=== PATIENT | male | born 1960 | race Caucasian/White ===

== ENCOUNTER 2022-06-12 15:33 | Emergency (ER) | payer OTHER, SELFPAY ==
[2022-06-12 15:34] VITALS: BP 232/133; PULSE 86; RESP 16; TEMP 36; O2SAT 98; BMI 26.6
--- NOTE | 2022-06-12 15:52 | ED.VIS.DENTA ---
HPI History of Present Illness Chief Complaint: Dental Informant: patient Narrative Narrative: Presents upper cheek swelling over the past week. History of dental decay. He currently does not have a dentist. Has had multiple flares in the past and last time was 6 months ago. He does have healthcare coverage. Also on arrival slightly elevated blood pressure 230s over 123. Not seen a PCP for years ago he was on blood pressure and cholesterol medicines. Discussed lisinopril hydrochlorothiazide he thinks this is it. He denies any allergies. Denies headaches chest pain abdominal pain. Denies nausea or vomiting. He states he does see [facility]. Prior similar symptoms: Yes PFSH PFS Home Medications lisinopril 20 mg-hydrochlorothiazide 25 mg tablet 1 tab PO DAILY #30 tabs 06/12/22 [Rx Last Taken Unknown] penicillin V potassium 250 mg tablet 500 mg PO 4X/DAY #40 tabs 06/12/22 [Rx Last Taken Unknown] Allergy/AdvReac Type Severity Reaction Status Date / Time No Known Allergies Allergy Verified 06/12/22 15:36 ROS ROS ED Constitutional Constitutional ED: Denies chills, fever(s) or sweats Eyes Eyes: Denies change in vision ENT ENT ED: Reports other Details: Dental pain with right maxillary swelling ; Denies dysphagia or sore throat Cardiovascular Cardiovascular: Denies chest pain, leg edema, palpitations or racing heartbeat Respiratory/Chest Respiratory/Chest: Denies cough, dyspnea or dyspnea on exertion Gastrointestinal Gastrointestinal: Denies abdominal pain, diarrhea, nausea or vomiting Genitourinary Genitourinary ED: Denies dysuria, hematuria or urinary frequency Musculoskeletal Musculoskeletal: Denies back pain, extremity pain or neck pain Integumentary Denies rash or wounds Neurologic Neurologic: Denies headache(s), paresthesias or weakness EXAM Physical Exam Const Vital Signs: 06/12/22 15:34 Temperature 96.8 F L Temperature Source Temporal Pulse Rate 86 Respiratory Rate 16 Blood Pressure 232/133 H Blood Pressure Mean 166 Pulse Ox 98 Oxygen Delivery Method Room Air Positive well nourished and well developed General Appearance ED: well developed and NAD HEENT Reports moist mucous membranes HEENT Narrative: Diffuse dental decay down to the gumline, there is no gingival swelling there is no focal abscess. There is some swelling of the right maxillary. Airway patent. No sublingual edema. normocephalic and atraumatic Eyes PERRL, EOMs intact bilaterally and conjunctivae normal General Eye ED: Yes normal appearance of both eyes Neck no lymphadenopathy and supple General: Negative for tenderness Chest Wall Chest: Negative for tenderness Resp normal respiratory effort and normal air movement Effort and Inspection: symmetric chest movement; Negative for respiratory distress Cardio regular rate, regular rhythm and no murmurs Peripheral Pulses: pulses 2+ throughout GI normal to inspection, nondistended, normoactive bowel sounds and non-tender Palpation: Negative for guarding or rebound tenderness present Back/Spine no CVA tenderness and no thoracic nor lumbar tenderness Extremity normal to inspection General Extremety ED: Negative for edema or tenderness General Extremity: Negative for edema Neuro oriented x3 and no sensory deficits noted Sensorium / Orientation: awake and alert Skin no rashes or lesions noted and no wounds MDM MDM MDM Narrative Medical decision making narrative: Recheck blood pressure in the room at 210/126. Patient asymptomatic and has not taken medicines in 4 years. Restarted on his lisinopril and hydrochlorothiazide at 20 and 25 mg. Discussed he would need to follow-up with his [facility] for blood pressure checks and continuous medication adjustments as needed. Month supply was written. I discussed the risks of strokes with blood pressure if persistently elevated, or kidney injury. As for his dental decay is having swelling there is no focal abscessed for I&D. He has had improvement with antibiotics. Penicillin started. He is given dental list for outpatient follow-up for definitive treatment. All questions were answered. Discharge Plan Triage Chief Complaint: Dental ED Provider: Javier Bull Dx/Rx/DC Orders Clinical Impression: Dental caries, Hypertension Instructions: Controlling High Blood Pressure, ED Dental Cavity Prescriptions: New penicillin V potassium 250 mg tablet 500 mg PO 4X/DAY Qty: 40 0RF lisinopril-hydrochlorothiazide 20-25 mg tablet 1 tab PO DAILY Qty: 30 0RF Primary Care Provider: Care Physician,No Primary Referrals: Care Physician,No Primary [Primary Care Provider] - Activity Restrictions/Additional Instructions: Make appointment with the [facility] to follow your blood pressure and continue your medications and adjustments as needed. Follow-up with dental clinic. Disposition Disposition: Home, Self Care
[2022-06-12] MEDS: Lisinopril 20 MG Tablet PO (16:04)
[2022-06-12] MEDS: hydroCHLOROthiazide 25 MG Tablet PO (16:04)
[2022-06-12] MEDS: Penicillin Vk 250 MG Tablet 500 MG PO (16:05)
== END 2022-06-12 16:08 | disposition home or self-care (01) ==
LOC: ED 16:00
PROVIDERS: Emergency Provider Emergency Medicine; Visit Provider Emergency Medicine
DX: K02.9 Dental caries, unspecified (principal); I10 Essential (primary) hypertension; Z79.899 Other long term (current) drug therapy
CPT/HCPCS: 99282

== ENCOUNTER 2022-08-04 15:18 | Emergency (ER) | payer OTHER, SELFPAY ==
[2022-08-04 15:19] VITALS: BP 152/94; PULSE 77; RESP 16; TEMP 36.3; O2SAT 98; BMI 25.7
--- NOTE | 2022-08-04 15:43 | EX.ED.DYSGE1 ---
HPI History of Present Illness Chief Complaint: Dental Onset/Context/Timing Onset: Month(s) (1) Context: Gradual Onset Timing: Continuous Quality: Stabbing, stinging, burning Location: Right upper premolars Worsened by: Nothing Relieved by: Nothing Narrative Narrative: Patient presents with facial swelling and right upper dental pain that has been getting worse over the past month. Patient states she has been on 2 courses of antibiotics for this with no improvement. Patient describes his pain as stabbing, stinging, and burning. Patient states nothing makes it better nothing makes it worse. Patient does admit to some sensitivity to cold. Patient also admits to facial and jaw swelling. Patient denies any difficulty breathing or difficulty swallowing. Patient also admits to some left upper quadrant abdominal pain. Patient admits to nausea and vomiting with this. Patient denies any fevers or chills. Patient denies any diarrhea, melena, or hematochezia. [facility] Medical History Hypertension Home Medications omeprazole 20 mg capsule,delayed release 20 mg PO DAILY ##30 09/21/14 [Rx Last Taken Unknown] hydrochlorothiazide 25 mg tablet 25 mg PO DAILY ##30 04/15/16 [Rx Last Taken Unknown] amoxicillin 875 mg-potassium clavulanate 125 mg tablet 875 mg PO Q12H #20 TABLETS 08/04/22 [Rx Last Taken Unknown] clindamycin HCl 150 mg capsule 150 mg PO TID 08/04/22 [History Last Taken Unknown] Allergy/AdvReac Type Severity Reaction Status Date / Time No Known Allergies Allergy Verified 08/04/22 15:31 Surgical History no surgical history no surgical history Social History Smoking Status: Current every day smoker tobacco type: cigarettes ROS ROS ED Constitutional Constitutional ED: Denies chills or fever(s) Eyes Eyes: Reports change in vision; Denies blurry vision ENT ENT ED: Denies rhinorrhea or sore throat Cardiovascular Cardiovascular: Denies chest pain or palpitations Respiratory/Chest Respiratory/Chest: Reports dyspnea; Denies cough Gastrointestinal Gastrointestinal: Reports abdominal pain, nausea and vomiting Genitourinary Genitourinary ED: Denies dysuria or hematuria Musculoskeletal Musculoskeletal: Denies back pain or neck pain Integumentary Reports abscess; Denies rash Neurologic Neurologic: Denies headache(s) or weakness Allergic/Immunologic Allergic/Immunologic ED: Denies mouth swelling or urticaria EXAM Physical Exam Const Vital Signs: 08/04/22 15:19 Temperature 97.3 F L Temperature Source Temporal Pulse Rate 77 Respiratory Rate 16 Blood Pressure 152/94 H Blood Pressure Mean 113 Pulse Ox 98 Oxygen Delivery Method Room Air Positive well nourished, well developed and unkempt General Appearance ED: unkempt, well developed and NAD HEENT Reports moist mucous membranes HEENT Narrative: There are multiple dental caries noted. There is edema of the right upper premolar area. There is no discharge or drainage. There is no fluctuance. Eyes PERRL and EOMs intact bilaterally Neck no lymphadenopathy, supple and no JVD Chest Wall inspection of chest normal and palpation of chest normal Resp normal respiratory effort and clear to auscultation bilaterally Cardio regular rate and regular rhythm GI normal to inspection, nondistended, normoactive bowel sounds Palpation: soft and tender LUQ; Negative for guarding or rebound tenderness present Neuro oriented x3, CN's II-XII intact bilaterally and no sensory deficits noted Sensorium / Orientation: alert Psych mental status grossly normal Appearance: unkempt MDM MDM MDM Narrative Medical decision making narrative: Patient was given IV fluids and Unasyn here. CBC shows a mild anemia with a hemoglobin of 10.0 and hematocrit 31.6. Comprehensive metabolic profile was essentially within normal limits. Lipase was normal. Patient was advised of his findings. Patient was given a prescription for Augmentin. Patient was instructed to follow-up with his dentist in 5 to 7 days. Patient was instructed to use Tums or Mylanta [id number] as needed for his abdominal pain. Patient was instructed to follow-up with his primary care physician in 5 to 7 days as well. Patient understood and was agreeable with the plan. All questions were answered. Lab Data Attestation: I reviewed the patient's lab results. Labs: Laboratory Results - last 24 hr 08/04/22 08/04/22 16:11 16:11 WBC 10.4 RBC 3.36 L Hgb 10.0 L Hct 31.6 L MCV 94.0 MCH 29.8 MCHC 31.6 L RDW Std Deviation 42.8 RDW Coeff of Terri 12.4 Plt Count 370 MPV 9.4 Immature Gran % (Auto) 0.300 Neut % (Auto) 74.5 H Lymph % (Auto) 13.6 L [place] % (Auto) 7.8 Eos % (Auto) 3.5 Baso % (Auto) 0.3 Absolute Neuts (auto) 7.8 H Absolute Lymphs (auto) 1.42 Nucleated RBC % 0 Sodium 139 Potassium 4.6 Chloride 105 Carbon Dioxide 29.0 Anion Gap 5 BUN 33 H Creatinine 0.98 Estim Creat Clear Calc 81.73 Est GFR (MDRD) Af Amer 100 Est GFR (MDRD) Non-Af 83 BUN/Creatinine Ratio 33.7 H Glucose 104 Calcium 9.6 Total Bilirubin 0.30 AST 9 L ALT 14 L Alkaline Phosphatase 64 Total Protein 6.9 Albumin 2.9 L Globulin 4.0 Albumin/Globulin Ratio 0.7 L Lipase 90 Discharge Plan Triage Chief Complaint: Dental ED Provider: Gerard Rowley Dx/Rx/DC Orders Clinical Impression: Abscess, dental, Left upper quadrant abdominal pain Instructions: ED Dental Abscess, ED Abdominal Pain Unkn Cause Male... Prescriptions: New amoxicillin-pot clavulanate [amoxicillin-pot clavulanate] 875-125 mg tablet 875 mg PO Q12H Qty: 20 0RF No Action omeprazole 20 MG capsule 20 mg PO DAILY Qty: 30 0RF hydrochlorothiazide 25 MG tablet 25 mg PO DAILY Qty: 30 0RF clindamycin HCl 150 mg capsule 150 mg PO TID Label Comments: TAKE 1 CAPSULE BY MOUTH THREE TIMES DAILY UNTIL GONE Primary Care Provider: Care Physician,No Primary Referrals: Ilda Lux [Non-Staff] - 5-7 Days NOT,DEFINED [Non-Staff] - Dentist,Your [STAFF PHYSICIAN] - 5-7 Days Disposition Disposition: Home, Self Care
[2022-08-04 16:15] LABS: Absolute Lymphocyte Count 1.42 X10^3/uL (0.83-4.51); Absolute Neutrophil Count 7.8 X10^3/uL (2.0-7.7); Basophil# 0.03 X10^3/uL; Basophil% 0.3 % (0-1); Eosinophil# 0.37 X10^3/uL; Eosinophils% 3.5 % (0-5); Hematocrit 31.6 % (40-54); Lymphocyte # 1.42 X10^3/ul (0.83-4.51); Lymphocyte % 13.6 % (19-41); Mean Corp Hgb Conc 31.6 g/dL (32-36); Mean Corpuscular Hgb 29.8 pg (27.0-32.0); Mean Platelet Vol. 9.4 fl (6.2-12.0); Monocyte# 0.81 X10^3/uL; Monocyte% 7.8 % (0-10); NRBC Flagged by Analyzer 0 % (0-5); Neutrophil # 7.78 X10^3/uL (2.7-7.7); Neutrophil % 74.5 % (47-70); Platelet Count 370 K/mm3 (150-450); RBC Distribution Width CV 12.4 % (11.6-14.6); RBC Distribution Width SD 42.8 fl (35.1-43.9); Red Blood Count 3.36 M/mm3 (4.6-6.2); White Blood Count 10.4 K/mm3 (4.4-11.0)
[2022-08-04 16:44] LABS: ALB/GLOB Ratio 0.7 RATIO (0.9-2.4); AST(SGOT) 9 U/L (15-37); Alanine Aminotransfer ALT/SGPT 14 U/L (16-61); Albumin, Serum 2.9 g/dL (3.2-5.0); Alkaline Phosphatase 64 U/L (45-117); Anion Gap 5 (5-15); BUN 33 mg/dL (7-18); BUN/Creat Ratio 33.7 RATIO (10-20); Calcium,Total 9.6 mg/dL (8.5-10.1); Chloride 105 mmol/L (98-107); Creatinine, Serum 0.98 mg/dL (0.70-1.30); EST Glomerular Filtration Rate 83 mL/min (>60); Est Glom Filt Rate - Afr Amer 100 mL/min (>60); Estimated Creatinine Clearance 81.73 ml/min; Glucose 104 mg/dL (74-106); Lipase 90 U/L (73-393); Potassium 4.6 mmol/L (3.5-5.1); Protein, Total 6.9 g/dL (6.4-8.2); Sodium Level 139 mmol/L (136-145)
[2022-08-04 17:30] VITALS: BP 163/94; PULSE 66; RESP 18; O2SAT 100
[2022-08-04 17:42] VITALS: BP 167/93; PULSE 57; RESP 18; O2SAT 97
--- NOTE | 2022-08-08 03:01 | HP.PCM.HOS_ITS ---
HPI - General General Date of Admission: 08/08/22 Date of Service: 08/08/22 Chief Complaint: Abdominal pain. HPI Narrative The patient is a 62 y/o M w/ PMHx: HTN, Tobacco use, recent dental infection over the last month with right upper face swelling treated with abx therapy course x2 including most recently 08/04/2022 Augmentin which was of note a 10-day supply and prior to this 07/29/2022 clindamycin also a 10-day course who presents to the [facility] ED on 08/08/22 with history of left-sided abdominal discomfort more so in the left upper quadrant with associated nausea and reports only emesis if he overeats with no specific diarrhea or constipation and reports has been having normal bowel movements with no melena or hematochezia but given the discomfort is been ongoing prompted ED evaluation. Work-up in the ED included T98.5, heart rate 94, BP 147/116, respiratory rate 20, 100% on room air, CBC with WBC 12.1, hemoglobin 10.8, MCV 94.2, platelet 418 with left shift, CMP with BUN/creatinine 36/1.48, glucose 142 otherwise hepatic profile unremarkable, lipase 112, CT abdomen pelvis with findings suggestive of possible sequelae of acute duodenitis and/or duodenal ulceration. In the ED patient ministered Protonix 40 mg IV x1, Zofran 4 mg IV x1, morphine 4 mg IV x2 as well as normal saline bolus. PFSH Medical History Chronic anemia Hypertension Tobacco use Home Medications omeprazole 20 mg capsule,delayed release 20 mg PO DAILY ##30 09/21/14 [Rx Last Taken Unknown] hydrochlorothiazide 25 mg tablet 25 mg PO DAILY ##30 04/15/16 [Rx Last Taken Unknown] amoxicillin 875 mg-potassium clavulanate 125 mg tablet 875 mg PO Q12H #20 TABLETS 08/04/22 [Rx Last Taken Unknown] clindamycin HCl 150 mg capsule 150 mg PO TID 08/04/22 [History Last Taken Unknown] Allergy/AdvReac Type Severity Reaction Status Date / Time No Known Allergies Allergy Verified 08/04/22 15:31 Surgical History no surgical history Social History Smoking Status: Current every day smoker tobacco type: cigarettes Vital Signs Vital Signs Vital Signs: Weight Weight: 179 lb 3.773 oz Body Mass Index (BMI) 25.7 Results Lab / Micro Data Result Diagrams: 08/04/22 16:11 08/04/22 16:11 Assessment & Plan Assessment/Plan PLAN: Plan The patient is a 62 y/o M w/ PMHx: HTN, Tobacco use, recent dental infection over the last month with right upper face swelling treated with abx therapy course x2 including most recently 08/04/2022 Augmentin which was of note a 10-day supply and prior to this 07/29/2022 clindamycin also a 10-day course who presents to the [facility] ED on 08/08/22 with history of left-sided abdominal discomfort more so in the left upper quadrant with associated nausea and reports only emesis if he overeats with no specific diarrhea or constipation and reports has been having normal bowel movements with no melena or hematochezia but given the discomfort is been ongoing prompted ED evaluation. #1. Acute abdominal pain with possibly acute duodenitis and/or duodenal ulceration: CT A/P w/ findings suggestive of possible sequelae of acute duodenitis and/or duodenal ulceration. Will admit to medical surgical floor, maintain on aggressive hydration, monitor I&Os, maintain NPO status w/ bowel rest, treat with zosyn regimen, maintain on IV PPI, anti-emetics, pain regimen PRN. Will request Gastroenterology consultation. #2. Acute Right Sided Dental Infection: 08/04/2022 Augmentin rx with 10-day supply and prior to this 07/29/2022 clindamycin also a 10-day course, transitione d as noted currently to zosyn given acute presentation #1. #3. Macrocytic anemia, unclear if acute or chronic: Admission hemoglobin 10.8, MCV 94.2, iron panel, ferritin, vitamin B12, folic acid level and pending guaiac per ED. #4. Acute Renal Insufficiency: Admission BUN/creatinine 36/1.48, last noted 08/04/22 BUN/Cr 33/0.98, will continue judicious hydration, temporarily hold patient lisinopril-hydrochlorothiazide combination and repeat level in AM. #5. Hyperglycemia: Admission glucose 142, possibly stress response however to be cautious will obtain hemoglobin A1c. #6. Hypertension: Given unclear MICHAEL versus CKD we will temporarily hold patient lisinopril-hydrochlorothiazide combination hypertensive medication in the interim maintain on PRN hydralazine. #7. Tobacco Abuse: Encouraged cessation, inpatient consultation per RT, NR if desired. #8. DVT prophylaxis: SCDs, defer chemoprophylaxis given concern for possible duodenal ulceration.
== END 2022-08-04 17:52 | disposition home or self-care (01) ==
PROVIDERS: Emergency Provider Emergency Medicine; Visit Provider Emergency Medicine
DX: K04.7 Periapical abscess without sinus (principal); F17.210 Nicotine dependence, cigarettes, uncomplicated; R11.2 Nausea with vomiting, unspecified; R10.12 Left upper quadrant pain; I10 Essential (primary) hypertension; K08.89 Other specified disorders of teeth and supporting structures
CPT/HCPCS: 80053; 83690; 85025; 96365; 99283; J7050; J0295

== ENCOUNTER 2022-08-08 00:26 | Emergency (ER) | payer OTHER, SELFPAY ==
[2022-08-08] VITALS (7 sets, daily range): BP systolic 147–174; BP diastolic 90–116; PULSE 61–94; RESP 16–20; TEMP 36.9; O2SAT 97–100; BMI 28.5
--- NOTE | 2022-08-08 01:07 | CT_ITS ---
STUDY: CT ABDOMEN AND PELVIS WITH CONTRAST REASON FOR EXAM: Male, 62 years old patient with left upper quadrant abdominal pain. RADIATION DOSAGE (If Supplied By Facility): CTDIvol = ( 18.28 ) mGy, DLP = ( 1067.09 ) mGycm TECHNIQUE: Transaxial images were obtained from the dome of the diaphragm to the symphysis pubis without oral contrast. 100 mL of IV Isovue-370 was administered. Sagittal and coronal images were reconstructed. Individualized dose optimization techniques were used for this CT. COMPARISON: Prior comparison studies are not available for review at this time. FINDINGS: The visualized lung bases are unremarkable. The visualized portions of the heart are within normal limits. There is hepatomegaly with diffuse hepatic enlargement. The liver measures up to 19 cm in greatest dimension. Normal gallbladder and extrahepatic biliary system. Normal spleen. Normal pancreas. Normal bilateral adrenal glands. Normal right kidney. Normal left kidney. Normal visualized stomach. There is abnormal appearing duodenum with abnormal thickening of the hendrickson of the duodenum suggesting sequela of acute duodenitis. Ulceration is also possible within the second portion of the duodenum. There may be some fluid adjacent to the abnormal duodenum as well. There is no obvious dilated bowel, ascites or pneumoperitoneum. There is stool visible throughout the colon. The descending colon is nondistended. There are scattered colonic diverticula. The appendix is visualized and appears normal. There is diffuse atherosclerotic calcification of the abdominal aorta with elongation and tortuosity and iliac arteries, but without a demonstrated aneurysm. Normal inferior vena cava. Normal retroperitoneum. Normal urinary bladder. Normal visualized prostate gland. Normal abdominal wall. There are multifocal degenerative changes of the visualized spine. There is mild retrolisthesis at L5-S1. CT/Abdomen/Pelvis W IV Cont ONLY IMPRESSION: Findings suggest sequela of acute duodenitis and/or duodenal ulceration. Electronically Signed: Beth Sebastian MD at 2:45 EDT ,
--- NOTE | 2022-08-08 01:10 | ED.VIS.GI ---
HPI HPI - GI History of Present Illness Chief Complaint: Abd Pain Narrative Narrative: 62-year-old male presenting for left upper quadrant abdominal pain. He states that he has had some dental pain and right upper face swelling over the last month. He has seen the dentist and the dentist does not want to do any surgeries on him. He has been on 2 courses of antibiotics without improvement. He states that he was seen on 08/04/2022 and also reported that he had some abdominal pain. He admits to intermittent nausea but is able to eat food. He states if he eats too much that he might throw up. I asked if he had any constipation and he stated no, no I would know this if I was constipated and if I was I would just eat applesauce and beans, but maybe I am constipated. He has not had any diarrhea. He states he is having bowel movements. No melena or hematochezia. He has not had a fever.The patient also states that he has not been seen or evaluated for his abdominal pain although he was here 4 days ago and had blood work drawn. While interviewing him he keeps answering every question that I ask him with I think I have an infection in my left upper quadrant I think it is my gallbladder or my appendix. When I ask him his medical problems he states he thinks he might have high blood pressure. PFSH PFSH Medical History Chronic anemia ETOH abuse Hypertension Tobacco use Home Medications lisinopril 20 mg-hydrochlorothiazide 25 mg tablet 1 tab PO DAILY #30 tabs 06/12/22 [Rx Last Taken Unknown] aspirin 81 mg capsule 81 mg PO DAILY 08/08/22 [History Last Taken Unknown] Allergy/AdvReac Type Severity Reaction Status Date / Time No Known Allergies Allergy Verified 08/08/22 00:33 Family History (Updated 08/08/22 @ 03:[address] Sydney Steiner MD) Mother Cancer Father COPD (chronic obstructive pulmonary disease) Heart disease Surgical History (Updated 08/08/22 @ 03:[address] Sydney Steiner MD) No history of previous surgery Surgical History no surgical history Social History (Updated 08/08/22 @ 03:[address] Sydney Steiner MD) household members: none Smoking Status: Current every day smoker tobacco type: cigarettes alcohol intake: current alcohol intake frequency: 3 or more drinks per day details: ~ 1 gallon of 4 LOCO daily. substance use type: does not use ROS ROS ED Constitutional Constitutional ED: Denies chills or fever(s) ENT ENT ED: Reports other Details: Right-sided facial swelling ; Denies rhinorrhea or sore throat Cardiovascular Cardiovascular: Denies chest pain Respiratory/Chest Respiratory/Chest: Denies cough or dyspnea Gastrointestinal Gastrointestinal: Reports abdominal pain, nausea and vomiting; Denies constipation or diarrhea Genitourinary Genitourinary ED: Denies dysuria or hematuria Musculoskeletal Musculoskeletal: Denies arthralgias or back pain Integumentary Denies abscess Neurologic Neurologic: Denies headache(s) Psychiatric Psychiatric: Denies anxiety or depression Endocrine Endocrinology: Denies polydipsia or polyphagia EXAM Physical Exam Const Vital Signs: 08/08/22 00:27 08/08/22 03:02 08/08/22 05:00 Temperature 98.5 F Temperature Source Temporal Pulse Rate 94 73 Respiratory Rate 20 H 18 18 Blood Pressure 147/116 H 174/100 H Blood Pressure Mean 126 124 Pulse Ox 100 97 Oxygen Delivery Method Room Air Room Air Room Air Positive well nourished and obese General Appearance ED: NAD; Negative for pallor Nutritional Appearance: obese HEENT Reports TM's clear and moist mucous membranes HEENT Narrative: Notable facial swelling on the right side of the face extending from the upper aspect of the mouth up into the cheek with some apparent swelling causing deviation of the eye upward. This is tender to palpation. Nares are patent. No drainage. atraumatic Tympanic Membrane ED: Yes TM's clear Eyes PERRL and EOMs intact bilaterally General Eye ED: Negative for pale conjunctiva or scleral icterus Neck no lymphadenopathy Resp normal respiratory effort Auscultation: Negative for rales, rhonchi or wheezes Cardio regular rate and regular rhythm GI Palpation: tender LLQ and LUQ Back/Spine no CVA tenderness Extremity full ROM Neuro CN's II-XII intact bilaterally, moves all extremities and no sensory deficits noted Sensorium / Orientation: alert Motor Exam: strength 5/5 throughout Psych mental status grossly normal and thought process normal Skin General Skin Exam: Negative for jaundice or pallor MDM MDM MDM Narrative Medical decision making narrative: Presenting with abdominal pain. He was seen a few days ago for this. It looks like he gave the name Sadnro the other day and the charts are not linked. His CBC showed a white blood cell count of 10.4 today it is 12.1. His hemoglobin done was 10.0 and today it is 10.8. Platelets were 370 and today they are 418. Creatinine was 0.98 with a BUN of 33 and today his BUN is 36 and his creatinine is 1.48. His GFR was 83 then and today his GFR is 51. He was given morphine, Zofran, a liter of normal saline. His lipase was 90 than and today it is 112. I will get a CAT scan of the abdomen pelvis with IV contrast. Although the patient's hemoglobin has increased he is also more dehydrated. He was given IV fluids. The CAT scan shows duodenitis versus duodenal ulceration. Given the change in hemoglobin from the past I suspect it may be a bleeding ulcer and he is Hemoccult positive. He is not on any oral anticoagulation. I note that he currently needs a blood transfusion. He was again given IV fluids. After speaking to the hospitalist on admission we determined we would do a CT of the facial bones to see if he had an abscess and this identifies aLarge mass probably arising from the right maxillary sinus with direct extension into the superficial soft tissues of the right face, superiorly into the right orbit, medially into the right-sided ethmoid sinuses and nasal cavity and posteriorly into the nasopharynx.? This is most likely either squamous cell carcinoma or lymphoma. At this point the hospitalist deferred admission and feels he would be better served at a facility that had ENT/plastic/somebody who could treat his facial mass. This was discussed with the patient. He was initially covered with Zosyn which would cover his perceived dental abscess as well as any GI issues. He was given Protonix 40 mg IV.Apparently the patient is also a drinker and drinks about a gallon of 4 [place]'s daily. He is a smoker. He has been on a course of Augmentin 08/04/2022 and prior to this 07/29/2022 he is on clindamycin. It does look like he has had dental problems dating back to May in this area. Again I had a long discussion with the patient about the need for transfer to a tertiary facility both for his GI bleed and duodenal ulcer as well as for specialty that would be able to manage his facial mass and his chief complaint was that he get a work note. When I initially told him he had a mass that the radiologist believed was cancer he laughed. Most of the time while I am trying to tell him about his medical need and how he would need care for his problems he continues to talk and not listen to me and is mostly worried about having a job and does not seem to understand the situation. I am currently trying to call other facilities for acceptance. I spoke with a Dr. Jones at [facility] who accepted transfer. Patient will be transported when a bed is available. Impression: 1. Right-sided facial mass 2. Nausea/vomiting 3. Duodenitis 4. Duodenal ulceration 5. GI bleed 6. Anemia 7. MICHAEL Lab Data Attestation: I reviewed the patient's lab results. Labs: Laboratory Results - last 24 hr 08/08/22 08/08/22 08/08/22 01:12 01:12 01:12 WBC 12.1 H RBC 3.65 L Hgb 10.8 L Hct 34.4 L MCV 94.2 H MCH 29.6 MCHC 31.4 L RDW Std Deviation 43.4 RDW Coeff of Terri 12.6 Plt Count 418 MPV 9.9 Immature Gran % (Auto) 0.300 Neut % (Auto) 75.9 H Lymph % (Auto) 13.5 L [place] % (Auto) 7.4 Eos % (Auto) 2.7 Baso % (Auto) 0.2 Absolute Neuts (auto) 9.1 H Absolute Lymphs (auto) 1.63 Nucleated RBC % 0 Sodium 141 Potassium 4.2 Chloride 103 Carbon Dioxide 27.0 Anion Gap 11 BUN 36 H Creatinine 1.48 H Estim Creat Clear Calc 54.12 Est GFR (MDRD) Af Amer 62 Est GFR (MDRD) Non-Af 51 L BUN/Creatinine Ratio 24.3 H Glucose 142 H Calcium 9.5 Phosphorus Magnesium Iron 21 L TIBC 366 Iron Saturation 5.7 L Ferritin 40 Total Bilirubin 0.20 AST 15 ALT 16 Alkaline Phosphatase 73 Total Protein 7.8 Albumin 3.3 Globulin 4.5 H Albumin/Globulin Ratio 0.7 L Lipase 112 08/08/22 01:12 WBC RBC Hgb Hct MCV MCH MCHC RDW Std Deviation RDW Coeff of Terri Plt Count MPV Immature Gran % (Auto) Neut % (Auto) Lymph % (Auto) [place] % (Auto) Eos % (Auto) Baso % (Auto) Absolute Neuts (auto) Absolute Lymphs (auto) Nucleated RBC % Sodium Potassium Chloride Carbon Dioxide Anion Gap BUN Creatinine Estim Creat Clear Calc Est GFR (MDRD) Af Amer Est GFR (MDRD) Non-Af BUN/Creatinine Ratio Glucose Calcium Phosphorus 2.9 Magnesium 2.1 Iron TIBC Iron Saturation Ferritin Total Bilirubin AST ALT Alkaline Phosphatase Total Protein Albumin Globulin Albumin/Globulin Ratio Lipase Radiography Diagnostic Testing: Clinical Impression(s) from Imaging Studies Abdomen/Pelvis CT 08/08/22 01:07 IMPRESSION: Findings suggest sequela of acute duodenitis and/or duodenal ulceration. Electronically Signed: Beth Sebastian MD at 2:45 EDT , Facial/Sinus 08/08/22 03:21 IMPRESSION: Large mass probably arising from the right maxillary sinus with direct extension into the superficial soft tissues of the right face, superiorly into the right orbit, medially into the right-sided ethmoid sinuses and nasal cavity and posteriorly into the nasopharynx. This is most likely either squamous cell carcinoma or lymphoma. Electronically Signed: Beth Sebastian MD at 4:28 EDT , Discharge Plan Triage Chief Complaint: Abd Pain ED Provider: Kee Mg Dx/Rx/DC Orders Prescriptions: No Action lisinopril-hydrochlorothiazide 20-25 mg tablet 1 tab PO DAILY Qty: 30 0RF aspirin 81 mg Capsule 81 mg PO DAILY Primary Care Provider: Care Physician,No Primary Referrals: Care Physician,No Primary [Primary Care Provider] -
[2022-08-08] MEDS: 0.9% Normal Saline 1,000 ML 999 ML IV (01:23)
[2022-08-08] MEDS: Morphine 4 MG/ML Syringe IV ×3 (01:23→12:52)
[2022-08-08] MEDS: Ondansetron 4 MG/2 ML Vial IV (01:24)
[2022-08-08 01:41] LABS: Absolute Lymphocyte Count 1.63 X10^3/uL (0.83-4.51); Absolute Neutrophil Count 9.1 X10^3/uL (2.0-7.7); Basophil# 0.02 X10^3/uL; Basophil% 0.2 % (0-1); Eosinophil# 0.33 X10^3/uL; Eosinophils% 2.7 % (0-5); Hematocrit 34.4 % (40-54); Hemoglobin 10.8 g/dL (13.0-16.5); Lymphocyte # 1.63 X10^3/ul (0.83-4.51); Lymphocyte % 13.5 % (19-41); Mean Corp Hgb Conc 31.4 g/dL (32-36); Mean Corpuscular Hgb 29.6 pg (27.0-32.0); Mean Corpuscular Volume 94.2 fL (80-94); Mean Platelet Vol. 9.9 fl (6.2-12.0); Monocyte# 0.89 X10^3/uL; Monocyte% 7.4 % (0-10); NRBC Flagged by Analyzer 0 % (0-5); Neutrophil # 9.14 X10^3/uL (2.7-7.7); Neutrophil % 75.9 % (47-70); Platelet Count 418 K/mm3 (150-450); RBC Distribution Width CV 12.6 % (11.6-14.6); RBC Distribution Width SD 43.4 fl (35.1-43.9); Red Blood Count 3.65 M/mm3 (4.6-6.2); White Blood Count 12.1 K/mm3 (4.4-11.0)
[2022-08-08 01:55] LABS: ALB/GLOB Ratio 0.7 RATIO (0.9-2.4); AST(SGOT) 15 U/L (15-37); Alanine Aminotransfer ALT/SGPT 16 U/L (16-61); Albumin, Serum 3.3 g/dL (3.2-5.0); Alkaline Phosphatase 73 U/L (45-117); Anion Gap 11 (5-15); BUN 36 mg/dL (7-18); BUN/Creat Ratio 24.3 RATIO (10-20); Calcium,Total 9.5 mg/dL (8.5-10.1); Chloride 103 mmol/L (98-107); Creatinine, Serum 1.48 mg/dL (0.70-1.30); EST Glomerular Filtration Rate 51 mL/min (>60); Est Glom Filt Rate - Afr Amer 62 mL/min (>60); Estimated Creatinine Clearance 54.12 ml/min; Globulin 4.5 g/dL (2.2-4.2); Glucose 142 mg/dL (74-106); Lipase 112 U/L (73-393); Potassium 4.2 mmol/L (3.5-5.1); Protein, Total 7.8 g/dL (6.4-8.2); Sodium Level 141 mmol/L (136-145)
--- NOTE | 2022-08-08 03:06 | HP.PCM.HOS_ITS ---
HPI - General General Date of Admission: 08/08/22 Date of Service: 08/08/22 Chief Complaint: Abdominal pain, R sided dental pain. HPI Narrative The patient is a 62 y/o M w/ PMHx: EtOH abuse (~ 1 gallon 4 LOCO daily), HTN, Tobacco use, recent dental infection over the last month with right upper face swelling treated with abx therapy course x2 including most recently 08/04/2022 Augmentin which was of note a 10-day supply and prior to this 07/29/2022 clindamycin also a 10-day course who presents to the [facility] ED on 08/08/22 with primarily complaint of left-sided abdominal discomfort more so in the left upper quadrant with associated nausea with serial bouts of emesis with any attempts of oral intake with no specific diarrhea or constipation and notes normal bowel movements but not the best historian in regards to bowel movement appearance. He notes currently the abdominal pain 5-6/10 in severity, aching and sharp with palpation. Although not his primarily complaint, upon questioning he notes that the right facial swelling has been progressively worsening and that it has now affected his right eye vision with difficulty opening up his eye secondary to periorbital edema in addition to scleral injection. Work-up in the ED included T 98.5, heart rate 94, BP 147/116, respiratory rate 20, 100% on room air, CBC with WBC 12.1, hemoglobin 10.8, MCV 94.2, platelet 418 with left shift, CMP with BUN/creatinine 36/1.48, glucose 142 otherwise hepatic profile unremarkable, lipase 112, CT abdomen pelvis with findings suggestive of possible sequelae of acute duodenitis and/or duodenal ulceration. In the ED patient administered Protonix 40 mg IV x1, Zofran 4 mg IV x1, morphine 4 mg IV x2 as well as normal saline bolus. Discussed current appearance with ED staff and requested CT facial/sinus be obtained without IV contrast given recent CT A/P with IV contrast. Notifed ED physician of plan of care and from current exam likely needed operative intervention thus would defer immediate admission until imaging and results obtained and if surgery appropriate which is highly expected would need maxillofacial acceptance of evaluation of the patient to admit to [facility] Medical History Chronic anemia ETOH abuse Hypertension Tobacco use Home Medications lisinopril 20 mg-hydrochlorothiazide 25 mg tablet 1 tab PO DAILY #30 tabs 06/12/22 [Rx Last Taken Unknown] aspirin 81 mg capsule 81 mg PO DAILY 08/08/22 [History Last Taken Unknown] Allergy/AdvReac Type Severity Reaction Status Date / Time No Known Allergies Allergy Verified 08/08/22 00:33 Family History (Updated 08/08/22 @ 03:[address] Sydney Steiner MD) Mother Cancer Father COPD (chronic obstructive pulmonary disease) Heart disease Surgical History (Updated 08/08/22 @ 03:[address] Sydney Steiner MD) No history of previous surgery no surgical history Social History (Updated 08/08/22 @ 03:[address] Sydney Steiner MD) household members: none Smoking Status: Current every day smoker tobacco type: cigarettes alcohol intake: current alcohol intake frequency: 3 or more drinks per day details: ~ 1 gallon of 4 LOCO daily. substance use type: does not use ROS ROS Narrative Admission Review of Systems: CONSTITUTIONAL: No weight loss, fever, chills, + weakness or fatigue. HEENT: + R facial swelling, redness, vision diminished secondary to lid edema, R sided dental pain/several caries. Eyes: No double vision or yellow sclerae. Ears, Nose, Throat: No hearing loss, sneezing, congestion, runny nose or sore throat. SKIN: No rash or itching, lesions, wounds. CARDIOVASCULAR: No chest pain, chest pressure or chest discomfort, palpitations, edema, orthopnea, syncopal events. RESPIRATORY: No shortness of breath, cough or sputum, wheezing, hemoptysis. GASTROINTESTINAL: + anorexia, nausea, vomiting, abdominal pain, No diarrhea, constipation. Denies but unsure both melena, BRBPR. GENITOURINARY: No dysuria, frequency, urgency or retention. NEUROLOGICAL: + headache, No dizziness, syncope, paralysis, ataxia, numbness or tingling in the extremities, focal weakness, change in bowel or bladder control, seizure. MUSCULOSKELETAL: + muscle, back pain, joint pain or stiffness. HEMATOLOGIC: + anemia, bleeding or bruising. LYMPHATICS: No enlarged nodes. No history of splenectomy. PSYCHIATRIC: No history of depression or anxiety. ENDOCRINOLOGIC: No reports of sweating, cold or heat intolerance. No polyuria or polydipsia. ALLERGIES: No history of asthma, hives, eczema or rhinitis. Vital Signs Vital Signs Vital Signs: 08/08/22 00:27 08/08/22 03:02 Temperature 98.5 F Temperature Source Temporal Pulse Rate 94 Respiratory Rate 20 H 18 Blood Pressure 147/116 H Blood Pressure Mean 126 Pulse Ox 100 Oxygen Delivery Method Room Air Room Air Weight Weight: 199 lb 4.766 oz Body Mass Index (BMI) 28.5 Physical Exam Narrative Physical Examination: General: Awake, alert, oriented x 3 and cooperative, seated upright in the ED bed, fatigued appearing, immediate obvious facial cellulitis/edema evident. Skin: Normal color, normal turgor, no icterus, no cyanosis except for severe appearance R facial erythema, notable edema, fluctuance consistent with large abscess infraorbital causing the orbid to be pushed upwards with noted scleral injection to the R eye and lid edema. HEENT: AT/NC, EOM intact with as noted lid edema, scleral injection, PERRLA, dry MM, no carotid bruits or JVD noted, see skin. Lungs: Diminished, > bases, appropriate effort, no rales, ronchi or wheezing. Heart: Regular rate and rhythm; no gallop, rub audible. Abdomen: Soft, L sided abdominal pain, focal, between the HARMONY and LL quadrants with voluntary guarding, ND, hyperactive BS, no HSM. Extremities: No cyanosis, clubbing, or edema. Neurological: Patient awake, alert, oriented as noted, cognitive function intact; pupils equally reactive to light and accommodation, cranial nerves grossly normal but some difficulty with evaluation given facial edema/cellulitis as noted, moving all 4 extremities, no focal deficits, strength mildly to moderately globally decreased secondary to acute presentation. Psychiatric: Affect appears fatigued, uncomfortable, no acute evidence of depressive or anxiety feelings. Results Lab / Micro Data Result Diagrams: 08/08/22 01:12 08/08/22 01:12 Labs: Laboratory Results - last 24 hr 08/08/22 01:12: WBC 12.1 H, RBC 3.65 L, Hgb 10.8 L, Hct 34.4 L, MCV 94.2 H, MCH 29.6, MCHC 31.4 L, RDW Std Deviation 43.4, RDW Coeff of Terri 12.6, Plt Count 418, MPV 9.9, Immature Gran % (Auto) 0.300, Neut % (Auto) 75.9 H, Lymph % (Auto) 13.5 L, [place] % (Auto) 7.4, Eos % (Auto) 2.7, Baso % (Auto) 0.2, Absolute Neuts (auto) 9.1 H, Absolute Lymphs (auto) 1.63, Nucleated RBC % 0 08/08/22 01:12: Sodium 141, Potassium 4.2, Chloride 103, Carbon Dioxide 27.0, Anion Gap 11, BUN 36 H, Creatinine 1.48 H, Estim Creat Clear Calc 54.12, Est GFR (MDRD) Af Amer 62, Est GFR (MDRD) Non-Af 51 L, BUN/Creatinine Ratio 24.3 H, Glucose 142 H, Calcium 9.5, Total Bilirubin 0.20, AST 15, ALT 16, Alkaline Phosphatase 73, Total Protein 7.8, Albumin 3.3, Globulin 4.5 H, Albumin/Globulin Ratio 0.7 L, Lipase 112 Radiology Impression Abdomen/Pelvis CT 08/08/22 01:07 IMPRESSION: Findings suggest sequela of acute duodenitis and/or duodenal ulceration. Electronically Signed: Beth Sebastian MD at 2:45 EDT Reading Location ID and State: [address] [place] [address] , Service support , Assessment & Plan Assessment/Plan (1) Abdominal pain: (2) Infected dental caries: PLAN: Plan The patient is a 62 y/o M w/ PMHx: EtOH abuse (~ 1 gallon 4 LOCO daily), HTN, To bacco use, recent dental infection over the last month with right upper face swelling treated with abx therapy course x2 including most recently 08/04/2022 Augmentin which was of note a 10-day supply and prior to this 07/29/2022 clindamycin also a 10-day course with worsening appearance who presents to the [facility] ED on 08/08/22 with primarily complaint of left-sided abdominal discomfort more so in the left upper quadrant with associated nausea with serial bouts of emesis with any attempts of oral intake with no specific diarrhea or constipation and notes normal bowel movements but not the best historian in regards to bowel movement appearance. #1. Acute Right Suspected Dental Abscess now expanding to Infraorbital Facial Abscess with Cellulitis, causing Ocular superior movement: 08/04/2022 Augmentin rx with 10-day supply and prior to this 07/29/2022 clindamycin also a 10-day course. If appropriate [facility] admission pending further facial imaging, will admit to [facility] floor, maintain on IV zosyn and vancomycin given notable abscess and cellulitis appearance pending Wound Cx/Wound MRSA, as noted prior requested CT Facial/sinus unfortunately without IV contrast as he already had imaging in the ED of his abdomen. Discussed with ED staff that it appears on evaluation to be a notable abscess causing the R eye to be shifted upward and likely will need operative intervention which may not be an option at [facility] and require tertiary thus will await the imaging results prior to consideration of admission. If surgery required will need maxillofacial surgery availability to admit otherwise patient may require transfer from the ED to tertiary with this availability. #2. Acute abdominal pain with possibly acute duodenitis and/or duodenal ulceration: CT A/P w/ findings suggestive of possible sequelae of acute duodenitis and/or duodenal ulceration. Will maintain on aggressive hydration, monitor I&Os, maintain NPO status w/ bowel rest, treat with zosyn regimen, maintain on IV PPI, anti-emetics, pain regimen PRN. Will request Gastroenterology consultation given these findings as some concern could be a bleeding duodenal ulcer especially with EtOH abuse history and anemia. #3. Macrocytic anemia, unclear if acute or chronic: Admission hemoglobin 10.8, MCV 94.2, iron panel, ferritin, vitamin B12, folic acid level and pending guaiac per ED. #4. Acute Renal Insufficiency: Admission BUN/creatinine 36/1.48, last noted 08/04/22 BUN/Cr 33/0.98, will continue judicious hydration, temporarily hold patient lisinopril-hydrochlorothiazide combination and repeat level in AM. #5. Hyperglycemia: Admission glucose 142, possibly stress response however to be cautious will obtain hemoglobin A1c. #6. Hypertension: Given unclear MICHAEL versus CKD we will temporarily hold patient lisinopril-hydrochlorothiazide combination hypertensive medication in the interim maintain on PRN hydralazine. #7. Tobacco Abuse: Encouraged cessation, inpatient consultation per RT, NR if desired. #8. EtOH Abuse: Patient notes routine consumption of often ~ 1 gallon 4 LOCO or other beer product usually daily but notes last intake Tuesday. Will maintain on CIWA protocol, MVI, thiamine and folic acid. Patient notes intention of continued EtOH usage. Case management consulted. If necessary may initiate phenobarbital taper if admitted and prolonged course. #9. DVT prophylaxis: SCDs, defer chemoprophylaxis given concern for possible duodenal ulceration and suspected necessity of OR for facial-dental abscess. Charges/Coding Visit Charges Inpatient E&M: 97829 Init Hosp L3
--- NOTE | 2022-08-08 03:21 | CT_ITS ---
STUDY: CT FACIAL BONES WITHOUT CONTRAST REASON FOR EXAM: Male, 62 years old patient with facial swelling. RADIATION DOSAGE (If Supplied By Facility): CTDIvol = ( 29.38 ) mGy, DLP = ( 664.99 ) mGycm TECHNIQUE: The patient was scanned in a multi detector CT scanner. Sagittal and coronal images were reconstructed. Individualized dose optimization techniques were used for this CT. COMPARISON: None. FINDINGS: There is a soft tissue mass within the right maxillary region that appears to be direct extension from a mass in the right maxillary sinus. This is likely neoplastic. Most commonly this is either squamous cell carcinoma or lymphoma. There is obvious invasion of the right ethmoid sinuses by the mass as well as extension into the right nasal cavity. There is also extension of the tumor into the nasopharynx. There is destruction of the RIGHT orbital floor by the mass with displacement of the globe superiorly and anteriorly. There is abnormal soft tissue intraconally and extraconally. Normal nasal bones and anterior nasal spine. There is a bony destruction of the anterior and medial hendrickson of right maxillary sinus. Via left orbit is within normal limits. The extraocular muscles, optic nerves and globes are within normal limits in appearance. There is mucosal thickening and possible fluid in the left maxillary sinus. Some opacification of several right-sided ethmoid sinuses probably by the mass. The left-sided ethmoid sinuses as well as the frontal sinuses appear clear. The sphenoid sinuses appear to be clear. Visualized parotid and submandibular glands have a grossly normal appearance. Nasopharynx is within normal limits otherwise. CT/Sinus/Facial Bone IMPRESSION: Large mass probably arising from the right maxillary sinus with direct extension into the superficial soft tissues of the right face, superiorly into the right orbit, medially into the right-sided ethmoid sinuses and nasal cavity and posteriorly into the nasopharynx. This is most likely either squamous cell carcinoma or lymphoma. Electronically Signed: Beth Sebastian MD at 4:28 EDT ,
--- NOTE | 2022-08-08 04:03 | ED.RN ---
Pt states he drinks a gallon of alcohol every day. He sates that he drinks beer and cheap wine. Mostly four [employer].
[2022-08-08 04:15] LABS: Ferritin 40 ng/mL (26-388); Iron 21 ug/dL (65-175); Iron Binding Capacity,Total 366 ug/dL (250-450); PERCENT IRON SATURATION 5.7 % (15.0-55.0)
--- NOTE | 2022-08-08 04:23 | ED.RN ---
Pt states last drink was Tuesday morning. Pt also states that he drinks all day until about 4 am then goes to work by 3pm.
[2022-08-08 04:52] LABS: Magnesium 2.1 mg/dL (1.6-2.6); Phosphorus 2.9 mg/dL (2.5-4.9)
--- NOTE | 2022-08-08 06:23 | NURSING ---
CALLED [phone] AND TALKED TO NURSING PICU NURSE AND THEY REPORT THE PATIENT DOES NOT HAVE A BED OR FLOOR ASSIGNED FOR TRANSFER TO THEM.
--- NOTE | 2022-08-08 08:21 | ED.RN ---
I CALLED [facility] FOR THE STATUS OF A BED FOR THE PATIENT. THEY SAID BEDS ARE TIGHT IT WILL BE LATER THIS MORNING.
--- NOTE | 2022-08-08 12:28 | ED.RN ---
THIS RN CALLS [facility] TO FOLLOW UP WITH PT TRANSFER. PT STILL AWAITING BED AT [facility]. PER TRANSFER LINE, NEED COVID RESULTS FAXED, AND SHOULD BE ABLE TO GET A BED SHORTLY AFTER THEY RECEIVE RESULTS. RESULTS OF COVID TEST FAXED PER ED SENIOR WEB ENGINEER.
--- NOTE | 2022-08-08 12:40 | NURSING ---
PHYSICIANS CALLED. ETA OF 1300.
--- NOTE | 2022-08-08 12:41 | ED.RN ---
[facility] TRANSFER LINE CALLS WITH ROOM NUMBER AND N-2-N PHONE NUMBER.
== END 2022-08-08 13:06 | disposition short-term general hospital (02) ==
LOC: ED 01:21
PROVIDERS: Family Medicine; Emergency Provider Student in an Organized Health Care Education/Training Program; Visit Provider Student in an Organized Health Care Education/Training Program
DX: K29.81 Duodenitis with bleeding (principal); I10 Essential (primary) hypertension; Z79.82 Long term (current) use of aspirin; K08.89 Other specified disorders of teeth and supporting structures; K02.9 Dental caries, unspecified; F17.200 Nicotine dependence, unspecified, uncomplicated; K26.9 Duodenal ulcer, unspecified as acute or chronic, without hemorrhage or perforation; E66.9 Obesity, unspecified; E86.0 Dehydration; D64.9 Anemia, unspecified; R10.12 Left upper quadrant pain; R22.0 Localized swelling, mass and lump, head; Z20.822 Contact with and (suspected) exposure to COVID-19; Z79.899 Other long term (current) drug therapy
CPT/HCPCS: 70486; 74177; 80053; 82274; 82728; 83540; 83550; 83690; 83735; 84100; 85025; 87811; 96361; 96365; 96366; 96367; 96375; 96376; 99285; J7050; Q9967; J2405

== ENCOUNTER 2023-09-25 11:53 | Emergency (ER) | payer SELFPAY ==
[2023-09-25 11:53] VITALS: BP 166/115; PULSE 91; RESP 14; TEMP 36.4; O2SAT 98; BMI 19.6
--- NOTE | 2023-09-25 12:09 | EX.ED.DYSGE1 ---
HPI <BHAVANA Bauman - Last Filed: 09/25/23 15:44> History of Present Illness Chief Complaint: General Illness Narrative Narrative: 63-year-old male has past medical history of sinus cancer s/p surgery about a year ago. He states he no longer gets treatment because he cannot drive and cannot go to [place]. He used to see Dr. Micheal Sebastian at [facility]. He has pain in his face over the area of cancer and all over his body. He is worried his kidneys are shutting down but can't clarify why. He has decreased p.o. intake but is eating and drinking and urinating normally. He states he could not get any help so he laid down outside this morning hoping someone would call 911. He thinks his girlfriend called the paramedics. He does live in his own trailer or stays with his girlfriend. He takes OTC pain medication but is unsure what type. He takes no prescription medications and does not follow with a doctor. He states he stopped seeing anyone because he lost his job and insurance. PFS <BHAVANA Bauman - Last Filed: 09/25/23 15:44> [facility] Medical History Chronic anemia Chronic anemia ETOH abuse Hypertension Hypertension Tobacco use Tobacco use Home Medications omeprazole 20 mg capsule,delayed release 20 mg PO DAILY ##30 09/21/14 [Rx Last Taken Unknown] hydrochlorothiazide 25 mg tablet 25 mg PO DAILY ##30 04/15/16 [Rx Last Taken Unknown] lisinopril 20 mg-hydrochlorothiazide 25 mg tablet 1 tab PO DAILY #30 tabs 06/12/22 [Rx Last Taken Unknown] amoxicillin 875 mg-potassium clavulanate 125 mg tablet 875 mg (0.875 x 875-125 mg) PO Q12H #20 TABLETS 08/04/22 [Rx Last Taken Unknown] clindamycin HCl 150 mg capsule 150 mg PO TID 08/04/22 [History Last Taken Unknown] aspirin 81 mg capsule 81 mg PO DAILY 08/08/22 [History Last Taken Unknown] oxycodone-acetaminophen 5 mg-325 mg tablet (Endocet) 1 tab PO Q8H PRN pain 7 days #21 tabs 09/25/23 [Rx Last Taken Unknown] Allergy/AdvReac Type Severity Reaction Status Date / Time No Known Allergies Allergy Verified 09/25/23 11:53 Family History (System 08/17/22 @ 10:01 by Katina Bowles) Mother Cancer Father COPD (chronic obstructive pulmonary disease) Heart disease Surgical History No history of previous surgery Social History (System 08/17/22 @ 10:01 by Katina Bowles) household members: none Smoking Status: Current every day smoker tobacco type: cigarettes alcohol intake: current alcohol intake frequency: 3 or more drinks per day details: ~ 1 gallon of 4 LOCO daily. substance use type: does not use ROS <BHAVANA Bauman Last Filed: 09/25/23 15:44> ROS ED ROS Narrative Constitutional: Negative for fever, chills, malaise. CVS: Negative for chest pain. Respiratory: Negative for shortness of breath, cough. GI: Negative for abdominal pain, nausea, vomiting, diarrhea. EXAM <BHAVANA Bauman Last Filed: 09/25/23 15:44> Physical Exam Narrative Exam Narrative: CONST: Patient is disheveled and dirty. ENT: Right facial deformity and missing eye from prior sinus surgery, patient has bandage stuffed into his cheek with dried yellow drainage. Right sided neck tumor/deformity. Trachea midline, breathing in no distress RESP: No respiratory distress, CTAB. CVS: Regular rate and rhythm, no murmur, no gallop. SKIN: Color normal, no rash, warm, dry, intact. EXTREMITIES: Normal appearance, no pedal edema. NEURO: Oriented x4. PSYCH: Normal affect. Const Vital Signs: 09/25/23 11:53 09/25/23 11:53 09/25/23 13:53 Temperature 97.6 F L Temperature Source Temporal Pulse Rate 91 55 L Respiratory Rate 14 16 Respiratory Effort Normal Respiratory Pattern Normal Blood Pressure 166/115 H 143/74 H Blood Pressure Mean 132 97 Pulse Ox 98 97 Oxygen Delivery Method Room Air Room Air 09/25/23 15:00 Temperature Temperature Source Pulse Rate 72 Respiratory Rate 14 Respiratory Effort Respiratory Pattern Blood Pressure 134/66 H Blood Pressure Mean 88 Pulse Ox 98 Oxygen Delivery Method Room Air <Dr. Eloy Kuhn DO - Last Filed: 09/25/23 16:20> Physical Exam Const Vital Signs: 09/25/23 11:53 09/25/23 11:53 09/25/23 13:53 Temperature 97.6 F L Temperature Source Temporal Pulse Rate 91 55 L Respiratory Rate 14 16 Respiratory Effort Normal Respiratory Pattern Normal Blood Pressure 166/115 H 143/74 H Blood Pressure Mean 132 97 Pulse Ox 98 97 Oxygen Delivery Method Room Air Room Air 09/25/23 15:00 Temperature Temperature Source Pulse Rate 72 Respiratory Rate 14 Respiratory Effort Respiratory Pattern Blood Pressure 134/66 H Blood Pressure Mean 88 Pulse Ox 98 Oxygen Delivery Method Room Air MDM <BHAVANA Bauman - Last Filed: 09/25/23 15:44> [facility] Narrative Medical decision making narrative: History gathered from: Patient, EMS, family Patient came in today due to generalized pain. He has history of presents sinus cancer, stopped receiving treatment. He appears well and nontoxic. Vital signs are stable. He has a significant right facial deformity from the cancer. No clinical evidence of dehydration or other abnormalities. He was worried about his renal function so blood work was obtained. CBC and BMP are unremarkable. Creatinine is 0.69. Alcohol screen negative. Talk screen positive for opiates but his urine sample was provided after receiving IV morphine and Zofran in the ED. He is still functioning at home and performing ADLs so does not require admission for placement. He has a girlfriend and family members here who can help him with his needs. I discussed it's important he reestablishes with a PCP. Social work is not available on a Tuesday but I left a message with the community case manager regarding his case so they can reach out and offer resources. I prescribed Percocet for pain and he was discharged in stable condition. Lab Data Attestation: I reviewed the patient's lab results. Labs: Laboratory Results - last 24 hr 09/25/23 09/25/23 09/25/23 12:20 13:55 15:03 WBC 7.2 RBC 4.69 Hgb 12.3 L Hct 39.8 L MCV 84.9 MCH 26.2 L MCHC 30.9 L RDW Std Deviation 46.1 H RDW Coeff of Terri 15.0 H Plt Count 397 MPV 9.5 Immature Gran % (Auto) 0.400 Neut % (Auto) 85.9 H Lymph % (Auto) 5.2 L Petroleum % (Auto) 8.1 Eos % (Auto) 0.4 Baso % (Auto) 0.0 Absolute Neuts (auto) 6.2 Absolute Lymphs (auto) 0.37 L Nucleated RBC % 0 Sodium 131 L Potassium 3.9 Chloride 98 Carbon Dioxide 28.0 Anion Gap 5 BUN 20 H Creatinine 0.69 L Estim Creat Clear Calc 97.66 Est GFR (MDRD) Af Amer 150 Est GFR (MDRD) Non-Af 124 BUN/Creatinine Ratio 29.2 H Glucose 128 H Calcium 9.0 Total Bilirubin 0.20 Direct Bilirubin 0.08 AST 19 ALT 10 L Alkaline Phosphatase 98 Total Protein 7.5 Albumin 2.6 L Globulin 4.9 H Urine Color Yellow Urine Clarity Clear Urine pH 6.0 Ur Specific [place] 1.020 Urine Protein 30 H Urine Glucose (UA) Normal Urine Ketones 5 H Urine Occult Blood 25 H Urine Nitrite Negative Urine Bilirubin Negative Urine Urobilinogen 1 H Ur Leukocyte Esterase 25 H Urine RBC 0 SEEN Urine WBC 0-5 SEEN Ur Squamous Epith Cells 0 SEEN Amorphous Sediment 1+ Urine Bacteria 0 SEEN Urine Mucus 0 SEEN Urine Opiates Screen POSITIVE H Urine Methadone Screen NEGATIVE Ur Barbiturates Screen NEGATIVE Ur Phencyclidine Scrn NEGATIVE Ur Amphetamines Screen NEGATIVE MDMA (Ecstasy) Screen NEGATIVE U Benzodiazepines Scrn NEGATIVE Urine Cocaine Screen NEGATIVE U Cannabinoids Screen NEGATIVE Ur Drug Screen Comment Ethyl Alcohol < 3.0 <Dr. Eloy Kuhn, DO - Last Filed: 09/25/23 16:20> [facility] MDM Narrative Medical decision making narrative: History gathered from: Patient, EMS, family Patient came in today due to generalized pain. He has history of presents sinus cancer, stopped receiving treatment. He appears well and nontoxic. Vital signs are stable. He has a significant right facial deformity from the cancer. No clinical evidence of dehydration or other abnormalities. He was worried about his renal function so blood work was obtained. CBC and BMP are unremarkable. Creatinine is 0.69. Alcohol screen negative. Talk screen positive for opiates but his urine sample was provided after receiving IV morphine and Zofran in the ED. He is still functioning at home and performing ADLs so does not require admission for placement. He has a girlfriend and family members here who can help him with his needs. I discussed it's important he reestablishes with a PCP. Social work is not available on a Tuesday but I left a message with the community case manager regarding his case so they can reach out and offer resources. I prescribed Percocet for pain and he was discharged in stable condition. I have personally performed a face to face assessment of the patient and have reviewed the TERRI Note. I performed a substantive portion of the visit including all aspects of the following. My murphy findings include: History is patient states that his kidneys are failing him because he has a pain in his right flank. He states that he has a history of sinus cancer with reconstruction with [facility] but he no longer wishes to go into [place] because he does not want to stay the night there. He states that his insurance through his work is lapsed and he has no medical coverage. He does not have a local primary care doctor that he is aware of. He states he made the comment that he was going to go lay outside in the grass wait for somebody to call 911. When I asked him why he did that when he clearly has 3 family members in the room that have phones that can help him he states it is because he just was tired of everything. Family states that he should probably go to a custodial but really cannot tell me why he needs a custodial. He states that he does not care for himself with the patient states that he is choosing cannot care for himself. He has been living at home alone has a girlfriend has local family's been able to eat and drink go to the bathroom ambulate. He understands that by doing nothing for his face/cancer is essentially creating a terminal illness. He understands this and is willing to visit with palliative care. Family states that they can cannot have him stay with him because they live in apartments and they can just have random people staying with them. Exam is disheveled unkept. He has clear postoperative changes of the face on the right with tissue dehiscence and flap failures. There is no cellulitis or pus seen. Medical Decison Making I explained to them that he would clearly qualify for some type of government assisted health insurance. I informed them that I am not seeing an obvious reason why he needs to be admitted to the hospital. His normal creatinine is making urine he does not have kidney failure. The back pain could be multifactorial but he states he does not really want a large work-up because he cannot pay for it and that it would not matter because he was cancer anyway. I told him I can leave a message for director social welfare to get back with him tomorrow to see how they might be able to assist as well as with palliative care to see if they can do in-home assessment. I do feel a lot of the patient's issues are related to his personal choices which she appears to have the capacity to do so. Lab Data Labs: Laboratory Results - last 24 hr 09/25/23 09/25/23 09/25/23 12:20 13:55 15:03 WBC 7.2 RBC 4.69 Hgb 12.3 L Hct 39.8 L MCV 84.9 MCH 26.2 L MCHC 30.9 L RDW Std Deviation 46.1 H RDW Coeff of Terri 15.0 H Plt Count 397 MPV 9.5 Immature Gran % (Auto) 0.400 Neut % (Auto) 85.9 H Lymph % (Auto) 5.2 L Petroleum % (Auto) 8.1 Eos % (Auto) 0.4 Baso % (Auto) 0.0 Absolute Neuts (auto) 6.2 Absolute Lymphs (auto) 0.37 L Nucleated RBC % 0 Sodium 131 L Potassium 3.9 Chloride 98 Carbon Dioxide 28.0 Anion Gap 5 BUN 20 H Creatinine 0.69 L Estim Creat Clear Calc 97.66 Est GFR (MDRD) Af Amer 150 Est GFR (MDRD) Non-Af 124 BUN/Creatinine Ratio 29.2 H Glucose 128 H Calcium 9.0 Total Bilirubin 0.20 Direct Bilirubin 0.08 AST 19 ALT 10 L Alkaline Phosphatase 98 Total Protein 7.5 Albumin 2.6 L Globulin 4.9 H Urine Color Yellow Urine Clarity Clear Urine pH 6.0 Ur Specific [place] 1.020 Urine Protein 30 H Urine Glucose (UA) Normal Urine Ketones 5 H Urine Occult Blood 25 H Urine Nitrite Negative Urine Bilirubin Negative Urine Urobilinogen 1 H Ur Leukocyte Esterase 25 H Urine RBC 0 SEEN Urine WBC 0-5 SEEN Ur Squamous Epith Cells 0 SEEN Amorphous Sediment 1+ Urine Bacteria 0 SEEN Urine Mucus 0 SEEN Urine Opiates Screen POSITIVE H Urine Methadone Screen NEGATIVE Ur Barbiturates Screen NEGATIVE Ur Phencyclidine Scrn NEGATIVE Ur Amphetamines Screen NEGATIVE MDMA (Ecstasy) Screen NEGATIVE U Benzodiazepines Scrn NEGATIVE Urine Cocaine Screen NEGATIVE U Cannabinoids Screen NEGATIVE Ur Drug Screen Comment Ethyl Alcohol < 3.0 Discharge Plan Triage Chief Complaint: General Illness ED Midlevel Provider: Mari Tai ED Provider: Eloy Kuhn Dx/Rx/DC Orders Clinical Impression: Chronic generalized pain, History of sinus cancer Prescriptions: New oxycodone-acetaminophen [Endocet] 5-325 mg tablet 1 tab PO Q8H PRN (Reason: pain) 7 Days Qty: 21 0RF No Action omeprazole 20 MG capsule 20 mg PO DAILY Qty: 30 0RF hydrochlorothiazide 25 MG tablet 25 mg PO DAILY Qty: 30 0RF lisinopril-hydrochlorothiazide 20-25 mg tablet 1 tab PO DAILY Qty: 30 0RF clindamycin HCl 150 mg capsule 150 mg PO TID Patient Comments: TAKE 1 CAPSULE BY MOUTH THREE TIMES DAILY UNTIL GONE amoxicillin-pot clavulanate [amoxicillin-pot clavulanate] 875-125 mg tablet 875 mg PO Q12H Qty: 20 0RF aspirin 81 mg Capsule 81 mg PO DAILY Primary Care Provider: Care Physician,No Primary Referrals: Ilda Lux [Non-Staff] - Care Physician,No Primary [Primary Care Provider] - Activity Restrictions/Additional Instructions: I prescribed percocet for pain. I will leave a message with our manager transition so they can reach out to your discuss resources to help you. You need to reestablish with a primary care doctor to help you take care of your ongoing health issues. Disposition Disposition: Home, Self Care Discharge Date/Time: 09/25/23 16:02
[2023-09-25] MEDS: 0.9% Normal Saline (1000mL) 1,000 ML 999 ML IV (12:27)
[2023-09-25] MEDS: Ondansetron 4 MG/2 ML Vial IV (12:27)
[2023-09-25] MEDS: Morphine 4 MG/ML Syringe IV (12:27)
[2023-09-25 12:29] LABS: Absolute Lymphocyte Count 0.37 X10^3/uL (0.83-4.51); Absolute Neutrophil Count 6.2 X10^3/uL (2.0-7.7); Eosinophil# 0.03 X10^3/uL; Eosinophils% 0.4 % (0-5); Hematocrit 39.8 % (40-54); Hemoglobin 12.3 g/dL (13.0-16.5); Lymphocyte # 0.37 X10^3/ul (0.83-4.51); Lymphocyte % 5.2 % (19-41); Mean Corp Hgb Conc 30.9 g/dL (32-36); Mean Corpuscular Hgb 26.2 pg (27.0-32.0); Mean Corpuscular Volume 84.9 fL (80-94); Mean Platelet Vol. 9.5 fl (6.2-12.0); Monocyte# 0.58 X10^3/uL; Monocyte% 8.1 % (0-10); NRBC Flagged by Analyzer 0 % (0-5); Neutrophil # 6.15 X10^3/uL (2.7-7.7); Neutrophil % 85.9 % (47-70); POSITIVE DIFFERENTIAL YES; Platelet Count 397 K/mm3 (150-450); RBC Distribution Width SD 46.1 fl (35.1-43.9); Red Blood Count 4.69 M/mm3 (4.6-6.2); White Blood Count 7.2 K/mm3 (4.4-11.0)
[2023-09-25 12:30] LABS: Differential Indicated SCAN CRITERIA MET
[2023-09-25 12:42] LABS: Anion Gap 5 (5-15); BUN 20 mg/dL (7-18); BUN/Creat Ratio 29.2 RATIO (10-20); Chloride 98 mmol/L (98-107); Creatinine, Serum 0.69 mg/dL (0.70-1.30); EST Glomerular Filtration Rate 124 mL/min (>60); Est Glom Filt Rate - Afr Amer 150 mL/min (>60); Estimated Creatinine Clearance 97.66 ml/min; Glucose 128 mg/dL (74-106); Potassium 3.9 mmol/L (3.5-5.1); Sodium Level 131 mmol/L (136-145)
[2023-09-25 13:32] LABS: AST(SGOT) 19 U/L (15-37); Alanine Aminotransfer ALT/SGPT 10 U/L (16-61); Albumin, Serum 2.6 g/dL (3.2-5.0); Alkaline Phosphatase 98 U/L (45-117); Bilirubin, Direct 0.08 mg/dL (0.00-0.30); Globulin 4.9 g/dL (2.2-4.2); Protein, Total 7.5 g/dL (6.4-8.2)
[2023-09-25] MEDS: Lisinopril 20 MG Tablet PO (13:50)
[2023-09-25] MEDS: hydroCHLOROthiazide 25 MG Tablet PO (13:51)
[2023-09-25 13:53] VITALS: BP 143/74; PULSE 55; RESP 16; O2SAT 97
[2023-09-25] MEDS: Ketorolac 15 MG/ML Vial IV (14:59)
[2023-09-25 15:00] VITALS: BP 134/66; PULSE 72; RESP 14; O2SAT 98
[2023-09-25 15:07] LABS: Alcohol, Blood (Medical)-Serum < 3.0 mg/dL
[2023-09-25 15:12] LABS: Bacteria 0 SEEN /hpf (None Seen); Mucous, Urine 0 SEEN /hpf (<or=2+); Red Blood Cells-Urine 0 SEEN /hpf (0-5); Squamous Epithelial Cells - UA 0 SEEN /hpf (0-5)
[2023-09-25 15:22] LABS: Color, Urine Yellow (Yellow); Glucose, Dipstick Normal (Normal); Ketone-Dipstick 5 mg/dl (Negative); Leukocyte Esterase-Dipstick 25 /ul (Negative); Nitrite-Dipstick Negative (Negative); Occult Blood-Urine 25 /ul (Negative); Protein-Dipstick 30 mg/dl (Negative); Urine Bilirubin Dipstick Negative (Negative); Urine Clarity Clear (Clear); Urine Urobilinogen 1 mg/dl (Normal)
[2023-09-25 15:37] LABS: Amphetamine Urine VISTA NEGATIVE (<1000 ng/mL); Barbiturate Urine VISTA NEGATIVE (< 200 ng/mL); Benzodiazepine Urine VISTA NEGATIVE (< 200 ng/mL); Cocaine Urine VISTA NEGATIVE (< 300 ng/mL); Ecstacy Urine VISTA NEGATIVE (< 500 ng/mL); Methadone Urine VISTA NEGATIVE (< 300 ng/mL); PCP Urine VISTA NEGATIVE (< 25 ng/mL); THC Urine VISTA NEGATIVE (< 50 ng/mL); Vista UDS pH Range 6
[2023-09-25 15:57] LABS: Amorphous Sediment 1+; White Blood Cells 0-5 SEEN /hpf (0-5)
== END 2023-09-25 16:02 | disposition home or self-care (01) ==
PROVIDERS: Physician Assistant; Emergency Provider Emergency Medicine; Visit Provider Emergency Medicine
DX: G89.29 Other chronic pain (principal); R10.9 Unspecified abdominal pain; M54.9 Dorsalgia, unspecified; R51.9 Headache, unspecified; I10 Essential (primary) hypertension; Z51.5 Encounter for palliative care; F17.210 Nicotine dependence, cigarettes, uncomplicated; Z85.22 Personal history of malignant neoplasm of nasal cavities, middle ear, and accessory sinuses
CPT/HCPCS: 36415; 80048; 80076; 80307; 81001; 82077; 85025; 96361; 96374; 96375; 99285; J7030; A4216; J2405